=== PATIENT | male | born 1950 ===

== ENCOUNTER 2023-08-28 09:00 | Inpatient (IN) | payer OTHER ==
[~2023-08-28] VITALS: Ht 170.2 cm; Wt 86.2 kg
[2023-08-28 09:47] LABS: PH,URINE 6.5 (5.0-8.0); URINE APPEARANCE Clear; URINE BILIRRUBIN Negative (NEGATIVE); URINE BLOOD Negative; URINE COLOR Yellow; URINE GLUCOSE Negative (NEGATIVE); URINE LEUKOCYTE Negative; URINE NITRATE Negative; URINE PROTEIN 30 (NEGATIVE); URINE UROBILINOGEN 0.2 E.U./dl
[2023-08-28 09:52] LABS: URINE RBC 8.7 uL (0.0-20.8)
[2023-08-28 09:52] LABS: HEMATOCRIT 45.4 % (39.0-48.0); HEMOGLOBIN 15.7 g/dL (13-16.00); MEAN CELL VOLUME 83.1 fL (80.0-100.00); MEAN CORPUSCULAR HEMOGLOBIN 28.7 pg (27.00-32.0); MEAN CORPUSCULAR HGB CONC 34.6 g/dl (32.0-36.0); PLATELET COUNT 173 K/uL (150-450); RED BLOOD COUNT 5.46 M/uL (4.00-6.00); RED CELL DISTRIBUTION WIDTH 16.1 % (11.5-14.5)
[2023-08-28 09:59] LABS: URINE EPITHELIAL CELLS 1.3 uL (0.0-38.8); URINE WBC 0.9 uL (0.0-23.2)
[2023-08-28 10:30] LABS: INR 0.99; PARTIAL THROMBOPLASTIN TIME 29.6 SECONDS (22.0-34.0); PROTHROMBIN TIME 10.4 SECONDS (9.0-11.5)
[2023-08-28 10:33] LABS: ALBUMIN 4.3 gm/dL (3.4-5.0); BILIRUBIN TOTAL 0.75 mg/dL (0.3-1.2); CALCIUM 9.9 mg/dL (8.5-10.1); CREATININE SERUM 1.35 mg/dL (0.70-1.30); GFR 51.52; GLOBULINA 3.6 G/DL (2.4-3.5); POTASSIUM 4.51 mEq/L (3.5-5.1); TOTAL PROTEIN 7.9 gm/dL (6.4-8.2)
[2023-08-28] MEDS ORDERED: HYDRALAZINE HC100 MG PO (11:00)
[2023-08-28] MEDS ORDERED: ROSUVASTATIN CA20 MG PO (11:00)
[2023-08-28] MEDS ORDERED: LONITEN2.5 MG PO (11:01)
[2023-08-28] MEDS ORDERED: TORSEMIDE10 MG PO (11:01)
[2023-08-28] MEDS ORDERED: NIFEDIPINE ER90 MG PO (11:02)
[2023-08-28] MEDS ORDERED: [UNRECOGNIZED DRUG - OTHER] PO (11:03)
[2023-09-04] MEDS ORDERED: IRBESARTAN-HCT1 EACH (09:03)
[2023-09-04] MEDS ORDERED: TADALAFIL5 MG (09:03)
[2023-09-04] MEDS ORDERED: SILDENAFIL CIT100 MG (09:03)
[2023-09-04] MEDS ORDERED: CLONIDINE HCL0.1 MG (09:03)
[2023-09-04] MEDS ORDERED: MAXIMUM D3325 MCG (09:03)
[2023-09-04] MEDS ORDERED: MAGNESIUM250 MG (09:03)
[2023-09-04] MEDS ORDERED: DOXAZOSIN MESYLA4 MG (09:03)
[2023-09-05 08:41] LABS: ALBUMIN 3.2 gm/dL (3.4-5.0); CALCIUM 8.8 mg/dL (8.5-10.1); CREATININE SERUM 1.73 mg/dL (0.70-1.30); GFR 38.7; MAGNESIUM 2.4 mg/dL (1.8-2.4); PHOSPHOROUS 4.7 mg/dL (2.5-4.9); POTASSIUM 4.23 mEq/L (3.5-5.1)
[2023-09-05 08:51] LABS: HEMATOCRIT 38.8 % (39.0-48.0); HEMOGLOBIN 13.3 g/dL (13-16.00); MEAN CELL VOLUME 84.1 fL (80.0-100.00); MEAN CORPUSCULAR HEMOGLOBIN 28.9 pg (27.00-32.0); MEAN CORPUSCULAR HGB CONC 34.4 g/dl (32.0-36.0); PLATELET COUNT 140 K/uL (150-450); RED BLOOD COUNT 4.61 M/uL (4.00-6.00); RED CELL DISTRIBUTION WIDTH 15.6 % (11.5-14.5)
[2023-09-06 08:02] LABS: HEMATOCRIT 41.3 % (39.0-48.0); MEAN CELL VOLUME 85.5 fL (80.0-100.00); MEAN CORPUSCULAR HEMOGLOBIN 28.9 pg (27.00-32.0); MEAN CORPUSCULAR HGB CONC 33.8 g/dl (32.0-36.0); PLATELET COUNT 151 K/uL (150-450); RED BLOOD COUNT 4.82 M/uL (4.00-6.00); RED CELL DISTRIBUTION WIDTH 15.5 % (11.5-14.5)
[2023-09-06 08:33] LABS: CREATININE SERUM 1.73 mg/dL (0.70-1.30); GFR 38.7; MAGNESIUM 2.3 mg/dL (1.8-2.4); PHOSPHOROUS 2.7 mg/dL (2.5-4.9); POTASSIUM 4.08 mEq/L (3.5-5.1)
[2023-09-07 07:23] LABS: CALCIUM 9.1 mg/dL (8.5-10.1); CREATININE SERUM 1.34 mg/dL (0.70-1.30); GFR 51.96; MAGNESIUM 2.2 mg/dL (1.8-2.4); PHOSPHOROUS 2.4 mg/dL (2.5-4.9); POTASSIUM 4.02 mEq/L (3.5-5.1)
[2023-09-07 07:24] LABS: HEMATOCRIT 40.8 % (39.0-48.0); HEMOGLOBIN 13.8 g/dL (13-16.00); MEAN CELL VOLUME 84.6 fL (80.0-100.00); MEAN CORPUSCULAR HEMOGLOBIN 28.6 pg (27.00-32.0); MEAN CORPUSCULAR HGB CONC 33.8 g/dl (32.0-36.0); PLATELET COUNT 163 K/uL (150-450); RED BLOOD COUNT 4.82 M/uL (4.00-6.00); RED CELL DISTRIBUTION WIDTH 15.1 % (11.5-14.5)
[2023-09-07] MEDS ORDERED: HYOSCYAMINE0.125 M1 SL (08:28)
== END 2023-09-07 12:44 | disposition home or self-care (01) | DRG 331 ==
LOC: SURH 09-04 05:30 → O/R 09-04 05:30 → SURH 09-04 09:00
PROVIDERS: Internal Medicine Geriatric Medicine; ADMIT Surgery; ATTEND Surgery
PROC: 0DTF4ZZ Resection of Right Large Intestine, Percutaneous Endoscopic Approach (ICD-10-PCS; principal; 2023-09-05)
PROC: 07BB4ZZ Excision of Mesenteric Lymphatic, Percutaneous Endoscopic Approach (ICD-10-PCS; 2023-09-05)
DX: D12.3 Benign neoplasm of transverse colon (principal); R59.0 Localized enlarged lymph nodes; I12.9 Hypertensive chronic kidney disease with stage 1 through stage 4 chronic kidney disease, or unspecified chronic kidney disease; N18.9 Chronic kidney disease, unspecified